=== PATIENT | male | born 1970 | race Two or more races ===

== ENCOUNTER 2022-06-26 16:35 | Emergency (ER) | payer OTHER ==
[2022-06-26 16:48] VITALS: RESP 19; TEMP 98.3; BMI 33.0
[2022-06-26 18:19] LABS: THROAT:GRP A STREP NOT DETECTED (NOTDETECTED)
[2022-06-26] MEDS ORDERED: DEXAMETHASONE SOD PHOSPHATE 10 MG/1 ML VIAL IM ONE (18:49)
[2022-06-26 20:12] VITALS: BP 157/92; PULSE 106
== END 2022-06-26 20:12 | disposition home or self-care (01) ==
LOC: JER 16:35
DX: B34.9 Viral infection, unspecified (principal)
CPT/HCPCS: 0241U-QW; 87651; 99283-25